=== PATIENT | female | born 1985 | race Caucasian/White ===

== ENCOUNTER → 2020-06-11 10:56 | Outpatient (CLI) | payer BC, SELFPAY ==
[2020-06-11] MEDS: COVID-19 VACC #1, MRNA(MOD) 100 MCG/0.5 ML VIAL IM (11:03)
== END ==
PROVIDERS: Visit Provider Internal Medicine
DX: Z23 Encounter for immunization (principal)
CPT/HCPCS: 0011A; 91301

== ENCOUNTER → 2020-07-09 16:22 | Outpatient (CLI) | payer OTHER, SELFPAY ==
[2020-07-09] MEDS: COVID-19 VACC #2, MRNA(MOD) 100 MCG/0.5 ML VIAL IM (16:29)
== END ==
PROVIDERS: Visit Provider Internal Medicine
DX: Z23 Encounter for immunization (principal)
CPT/HCPCS: 0012A; 91301

== ENCOUNTER → 2023-11-29 11:19 | Outpatient (CLI) | payer BC, SELFPAY | PROVIDERS: PCP Physician Assistant Medical; Visit Provider Physician Assistant Medical | DX: N61.0 Mastitis without abscess (principal) | CPT/HCPCS: 87070; 87075; 87077; 87147; 87186; 87205 ==

== ENCOUNTER 2023-11-30 15:09 | Emergency (ER) | payer BC, SELFPAY ==
[2023-11-30 15:12] VITALS: BP 137/81; PULSE 85; RESP 16; TEMP 37.3; O2SAT 97; BMI 32.5
[2023-11-30 15:51] LABS: Add Manual Diff / Slide Review NO; Basophils Absolute Auto 0 /uL (0-100); Basophils Percent Auto 0.3 % (0-2); Eosinophils Absolute Auto 0 /uL (0-450); Eosinophils Percent Auto 0.3 % (2-4); Hematocrit 37.1 % (36-46); Hemoglobin 13.1 g/dL (12.0-16.0); Lymphocytes Absolute Auto 1100 /uL (1100-4500); Lymphocytes Percent Auto 18.8 % (25-40); Mean Corpuscular HGB Conc 35.3 % (30-36); Mean Corpuscular Hemoglobin 30.7 PG (26-34); Mean Corpuscular Volume 87.1 fL (80-100); Monocytes Absolute Auto 500 /uL (0-900); Monocytes Percent Auto 9.2 % (3-14); Neutrophils Absolute Auto 4100 /uL (1500-7000); Neutrophils Percent Auto 71.4 % (50-75); Platelet Count 124 X10^3/uL (150-400); Red Blood Cell Count 4.27 X10^6/uL (4.0-5.2); White Blood Cell Count 5.8 X10^3/uL (4.5-11.0)
--- NOTE | 2023-11-30 15:51 | DI.US.S_ITS ---
LIMITED ULTRASOUND OF RIGHT BREAST: 11/30/2023 CLINICAL: Focal right breast pain and redness. No prior exams were available for comparison. Color flow and real-time ultrasound of the right breast upper inner quadrant were performed. Mendoza scale images of the real-time examination were reviewed. Subcutaneous edema in the region of concern. Irregular area of hypodensity at 3:00 4 cm from the nipple measuring approximately 3.8 cm. There is internal vascularity. This has the appearance of a phlegmon. No drainable fluid collection. No galactocele. Patient is currently . No mass or cyst identified. IMPRESSION: PROBABLY BENIGN Right breast phlegmon measuring 3.8 cm. No drainable fluid collection or galactocele. Subcutaneous edema. A follow-up ultrasound in 1 month is recommended to ensure resolution. Results conveyed to the patient and the emergency department. This exam was interpreted at Station ID: [id number]. Electronically Signed By: Tonny Brewer M.D. [facility] [place]/:11/30/2023 16:28:57 letter sent: Followup Recommended Ultrasound BI-RADS: 3 Probably benign
[2023-11-30 16:02] LABS: INR 1.2 (0.9-1.3); Prothrombin Time 13.8 SECONDS (9.4-12.5)
[2023-11-30 16:04] LABS: PTT Partial Thromboplastin Tim 34 SECONDS (25.1-36.5)
[2023-11-30 16:05] LABS: Alanine Aminotransferase 17 IU/L (<35); Albumin 4.1 g/dL (3.5-5.0); Albumin Globulin Ratio 1.3 (1.0-2.8); Alkaline Phosphatase 59 U/L (38-126); Aspartate Aminotransferase 22 IU/L (14-36); BUN Creatinine Ratio 11.1 (6-22); Bilirubin Total 0.5 mg/dL (0.2-1.3); Blood Urea Nitrogen 6 mg/dL (7-17); Calcium 8.5 mg/dL (8.4-10.2); Carbon Dioxide 23 mmol/L (22-32); Chloride 103 mmol/L (98-107); Estimated Glomerular Filt Rate > 60 mL/min (>60); Globulin 3.1 g/dL (1.7-4.1); Glucose 95 mg/dL (70-100); HEMOLYSIS < 15 (0-50); Lipase 66 U/L (23-300); Potassium 3.8 mmol/L (3.4-5.1); Sodium 133 mmol/L (137-145); Total Protein 7.2 g/dL (6.3-8.2)
[2023-11-30 16:06] LABS: Lactate (Lactic Acid) 0.6 mmol/L (0.7-2.1)
[2023-11-30 16:22] LABS: Procalcitonin < 0.030 ng/mL (<0.5)
[2023-11-30] MEDS: SODIUM CHLORIDE 0.9% 1,000 ML 1000 ML IV (16:25)
--- NOTE | 2023-11-30 17:01 | ED.RECABL ---
HPI - Recheck/Abnormal Lab/Rx General Chief Complaint: Recheck/Abnormal Lab/Rx Stated Complaint: breast tenderness, red lines, sent by [facility] Time Seen by Provider: 11/30/23 15:49 History of Present Illness HPI narrative: 37-year-old female who is continuing to breastfeed her 2-1/2-year-old youngest child, has 4 days' duration of right-sided breast discomfort with redness, fever to 102 yesterday, seen at the [facility] yesterday, was given a shot of ceftriaxone antibiotic and started prescription for cephalexin antibiotic, she is taken the oral antibiotics, feels like right breast pain is worsening, still feels feverish. No other areas of discomfort. She does not recall any specific bite injury from her 2-1/2-year-old who has upper and lower teeth. Related Data Previous Rx's Medication Instructions Recorded cephalexin 500 mg capsule 500 mg PO Q8H #30 caps 11/29/23 amoxicillin 875 mg-potassium 1 tab PO BID #20 tabs 11/30/23 clavulanate 125 mg tablet amoxicillin 875 mg-potassium 1 tab PO BID #20 tabs 11/30/23 clavulanate 125 mg tablet Allergies Allergy/AdvReac Type Severity Reaction Status Date / Time No Known Drug Allergies Allergy Unverified 11/29/23 11:12 Review of Systems Review of Systems Narrative: see HPI Exam Narrative Exam Narrative: GENERAL: Well-developed patient, in mild distress. HEAD: Atraumatic. Normocephalic. EYES: Pupils equal round and reactive. Extraocular motions intact. No scleral icterus. No injection or drainage. ENT: Nose without bleeding, purulent drainage. Throat without erythema, tonsillar hypertrophy or exudate. Airway patent. NECK: Trachea midline. Non tender CARDIOVASCULAR: Regular rate and rhythm without murmurs, gallops, or rubs. RESPIRATORY: Clear to auscultation. Breath sounds equal bilaterally. No wheezes, rales, or rhonchi. Breast: right breast with medial erythema and tactile warmth 4x8cm area, lateral streak redness, small scab nipple, no dimpling, no skin open ulceration or discharge. GASTROINTESTINAL: Abdomen soft, non-tender, nondistended. EXTREMITIES: No edema or joint tenderness. BACK: Nontender without deformity or crepitance. No flank tenderness. NEURO: AOx3. SKIN: No rash or erythema of visible areas Initial Vital Signs Initial Vital Signs: Vital Signs Temperature 99.1 F 11/30/23 15:12 Pulse Rate 85 11/30/23 15:12 Respiratory Rate 16 11/30/23 15:12 Blood Pressure 137/81 11/30/23 15:12 Pulse Oximetry 97 11/30/23 15:12 Oxygen Delivery Method Room Air 11/30/23 15:12 Course Orders Ordered: ED Orders 11/30/23 15:40 Complete Blood Count AUTO DIFF Stat Comprehensive Metabolic Panel Stat Lactate (Lactic Acid) Stat Lipase Stat PTT Partial Thromboplastin Abhijeet Stat Procalcitonin Stat Prothrombin Time INR Stat 11/30/23 15:51 US breast RT limited Stat 11/30/23 16:35 Blood Culture Stat Discontinued Medications Amoxicillin/Clavulanate Potassium (Amoxicillin/Clav 875/125 Mg) 1 tab PO NOW ONE Stop: 11/30/23 18:02 Last Admin: 11/30/23 18:16 Dose: 1 tab Documented By: MONIKA Amoxicillin/Clavulanate Potassium (Amoxicillin/Clav 875/125 Mg) 1 tab PO NOW ONE Stop: 11/30/23 18:05 Sodium Chloride (Normal Saline 0.9%) 1,000 mls @ 1,000 mls/hr IV BOLUS ONE Stop: 11/30/23 16:22 Last Infusion: 11/30/23 17:36 Dose: Infused Documented By: Admin: 11/30/23 16:25 Dose: 1,000 mls/hr Documented By: ASHLEY Ibuprofen (Ibuprofen 400 Mg Tablet) 800 mg PO NOW ONE Stop: 11/30/23 17:31 Last Admin: 11/30/23 17:35 Dose: 800 mg Documented By: ASHLEY Ondansetron HCl (Ondansetron 4 Mg/2 Ml Inj) 4 mg IV NOW PRN PRN Reason: Nausea And Vomiting Ondansetron HCl (Ondansetron 4 Mg Odt) 4 mg SL NOW PRN PRN Reason: Nausea And Vomiting Vital Signs Vital signs: Vital Signs - 8 hr 11/30/23 15:12 11/30/23 17:20 11/30/23 17:20 Temperature 99.1 F Pulse Rate 85 82 Respiratory Rate 16 Blood Pressure 137/81 118/67 Pulse Oximetry 97 100 Oxygen Delivery Method Room Air 11/30/23 18:22 Temperature 98.6 F Pulse Rate 88 Respiratory Rate 16 Blood Pressure 110/60 Pulse Oximetry 99 Oxygen Delivery Method Room Air MDM - Recheck/Abnormal Lab/Rx Lab Data Attestation: I reviewed the patient's lab results. 11/30/23 15:40 11/30/23 15:40 Labs: Lab Results 11/30/23 Range/Units 15:40 WBC 5.8 (4.5-11.0) X10^3/uL RBC 4.27 (4.0-5.2) X10^6/uL Hgb 13.1 (12.0-16.0) g/dL Hct 37.1 (36-46) % MCV 87.1 (80-100) fL MCH 30.7 (26-34) PG MCHC 35.3 (30-36) % RDW 12.0 (11.6-14.8) % Plt Count 124 L (150-400) X10^3/uL Neut % (Auto) 71.4 (50-75) % Lymph % (Auto) 18.8 L (25-40) % Hamilton % (Auto) 9.2 (3-14) % Eos % (Auto) 0.3 L (2-4) % Baso % (Auto) 0.3 (0-2) % Neut # (Auto) 4100 (6154-7662) /uL Lymph # (Auto) 1100 (0059-0223) /uL Hamilton # (Auto) 500 (0-900) /uL Eos # (Auto) 0 (0-450) /uL Baso # (Auto) 0 (0-100) /uL PT 13.8 H (9.4-12.5) SECONDS INR 1.2 (0.9-1.3) APTT 34 (25.1-36.5) SECONDS Sodium 133 L (137-145) mmol/L Potassium 3.8 (3.4-5.1) mmol/L Chloride 103 (98-107) mmol/L Carbon Dioxide 23 (22-32) mmol/L BUN 6 L (7-17) mg/dL Creatinine 0.54 (0.52-1.04) mg/dL Estimated GFR > 60 (>60) mL/min BUN/Creatinine Ratio 11.1 (6-22) Glucose 95 (70-100) mg/dL Lactate 0.6 L (0.7-2.1) mmol/L Calcium 8.5 (8.4-10.2) mg/dL Total Bilirubin 0.5 (0.2-1.3) mg/dL AST 22 (14-36) IU/L ALT 17 (<35) IU/L Alkaline Phosphatase 59 (38-126) U/L Total Protein 7.2 (6.3-8.2) g/dL Albumin 4.1 (3.5-5.0) g/dL Globulin 3.1 (1.7-4.1) g/dL Albumin/Globulin Ratio 1.3 (1.0-2.8) Lipase 66 (23-300) U/L Procalcitonin < 0.030 (<0.5) ng/mL Point of Care Testing Test Results Negative Urine Dip Bedside Urine Glucose Negative Bedside Urine Bilirubin - Negative Bedside Urine Ketone - Negative Urine Specific Gautier 1.010 Bedside Urine Occult Blood - Negative Bedside Urine pH 6.5 Bedside Urine Protein - Negative Bedside Urine Urobilinogen - Negative Bedside Urine Nitrite - Negative Bedside Urine Leukocytes - Negative Esterase MDM Narrative Medical decision making narrative: 37-year-old female day to oral Keflex after ceftriaxone from clinic yesterday for right mastitis, increasing pain, still her 2-1/2-year-old, no bite injury recalled. Afebrile on triage. Sirs screen negative. US right breast shows plegmonous changes parenchymal but no organized fluid collection or dominant duct. See radiology report. Case discussed with surgery Dr Cason, no surgical intervention indicated now, fluid might organize for drainage, might resorb, noted, consider change from Keflex to Augmentin. First dose Augmentin in ED given, Rx sent to local pharmacy for pickup tonight. Recheck advised clinic [facility] this Sunday, consider interval repeat US, return precautions discussed. Discharged home Discharge Plan Departure Patient Disposition: Home Clinical Impression: Mastitis Activity Restrictions/Additional Instructions: Day to oral cephalexin with right breast infection, ongoing , injection of ceftriaxone antibiotic given yesterday. Worsening today. Reported fevers but not on triage here today. Ultrasound today showed phlegmonous change to the right breast area, no organized fluid or cyst or abscess to drain at this time. Case was discussed with on-call surgery Dr. Smith, no surgical interventions at this time, consider change of antibiotics from cephalexin to Augmentin, 1st dose now, prescription sent to pharmacy. Take course as directed. Recheck symptoms and examination at [facility] on Sunday. Consider follow up ultrasound to see if any organized fluid collection is present that might be amenable to percutaneous or more invasive drainage procedure. Take Tylenol/Motrin as needed for pain control. Return earlier to this/nearest emergency department for any change worsening symptoms or any concerns prior Prescriptions: New amoxicillin-pot clavulanate 875-125 mg tablet 1 tab PO BID Qty: 20 0RF amoxicillin-pot clavulanate 875-125 mg tablet 1 tab PO BID Qty: 20 0RF No Action cephalexin 500 mg capsule 500 mg PO Q8H Qty: 30 0RF Referrals: Dwayne Cason MD [Physician] - Ofelia Moncada PA-C [Primary Care Provider] - Stand Alone Forms: Patient Portal/API
[2023-11-30 17:20] VITALS: BP 118/67; PULSE 82; O2SAT 100
[2023-11-30] MEDS: IBUPROFEN 400 MG TABLET 800 MG PO (17:35)
[2023-11-30] MEDS: AMOXICILLIN/CLAV 875/125 MG 1 TAB PO (18:16)
[2023-11-30 18:22] VITALS: BP 110/60; PULSE 88; RESP 16; TEMP 37; O2SAT 99
== END 2023-11-30 18:25 | disposition home or self-care (01) ==
PROVIDERS: Emergency Provider Emergency Medicine; PCP Physician Assistant Medical
DX: N61.0 Mastitis without abscess (principal)
CPT/HCPCS: 36415; 76642; 80053; 81003; 81025; 83605; 83690; 84145; 85025; 85610; 85730; 87040; 96360; 99284

== ENCOUNTER → 2025-02-26 10:32 | Outpatient (CLI) | payer BC, SELFPAY ==
[2025-02-26 18:53] LABS: HEMOLYSIS < 15 (0-50); Iron 106 ug/dL (37-170)
[2025-02-26 18:54] LABS: Hematocrit 38.7 % (36-46); Hemoglobin 13.8 g/dL (12.0-16.0); Mean Corpuscular HGB Conc 35.6 % (30-36); Mean Corpuscular Hemoglobin 31.4 PG (26-34); Mean Corpuscular Volume 88.2 fL (80-100); Platelet Count 228 X10^3/uL (150-400)
[2025-02-26 18:57] LABS: Blood Urea Nitrogen 9 mg/dL (7-17); Calcium 9.6 mg/dL (8.4-10.2); Carbon Dioxide 25 mmol/L (22-32); Chloride 104 mmol/L (98-107); Cholesterol 177 mg/dL (140-199); Estimated Glomerular Filt Rate > 60 mL/min (>60); Glucose 87 mg/dL (70-99); HDL Cholesterol 37 mg/dL (40-60); HEMOLYSIS < 15 (0-50); Potassium 4.2 mmol/L (3.4-5.1); Sodium 138 mmol/L (137-145); Triglycerides 145 mg/dL (35-150)
[2025-02-26 19:03] LABS: Percent Iron Saturation 34 % (15-50); Total Iron Binding Capacity 309 ug/dL (265-497); Transferrin 257 mg/dL (206-381)
[2025-02-26 19:27] LABS: Thyroid Stimulating Hormone 1.18 uIU/mL (0.47-4.68)
[2025-02-26 19:31] LABS: Ferritin 73 ng/mL (6-137)
== END ==
PROVIDERS: PCP Physician Assistant Medical; Visit Provider Family Medicine
DX: Z13.1 Encounter for screening for diabetes mellitus (principal); Z13.6 Encounter for screening for cardiovascular disorders; Z13.29 Encounter for screening for other suspected endocrine disorder; Z13.0 Encounter for screening for diseases of the blood and blood-forming organs and certain disorders involving the immune mechanism; R53.83 Other fatigue
CPT/HCPCS: 80048; 80061; 82728; 83540; 83550; 84443; 85027